=== PATIENT | female | born 1990 | race Caucasian/White ===

== ENCOUNTER → 2018-10-04 | Outpatient (CLI) | payer OTHER ==
[2018-10-04 18:22] LABS: CALCIUM 8.5 mg/dL (8.4-10.2)
[2018-10-04 18:58] LABS: FERRITIN 5.82 ng/mL (6.2-137.0)
== END ==
LOC: OD 16:48
PROVIDERS: ATTEND Advanced Practice Midwife
DX: O99.013 Anemia complicating pregnancy, third trimester (principal); D64.9 Anemia, unspecified; Z11.3 Encounter for screening for infections with a predominantly sexual mode of transmission; Z98.84 Bariatric surgery status
CPT/HCPCS: 36415; 82306; 82310; 82607; 82728; 82746; 83020; 83540; 83550; 87081; 87491; 87591

== ENCOUNTER 2018-10-30 14:41 | Outpatient (CLI) | payer OTHER ==
--- NOTE | 2018-10-30 15:54 | Non Stress Test Report ---
Non Stress Test Datetime Report Generated by CPN: 10/30/2018 15:54 DEMOGRAPHIC EGA NST: 40.0 INDICATION Indication for Study: Ordered by Provider MONITORING Monitor Explained: Monitor Explained; Test Explained; Patient Verbalized Understanding Time on Monitor: 10/30/2018 14:56 Time off Monitor: 10/30/2018 15:47 NST Duration: 51 NST INTERVENTIONS NST Interventions: None Physician Notified NST: Dr. Pedraza BABY A: [id number] BABY A Movement : Present Contraction Frequency : irregular FHR Baseline : 125 Accelerations : 15X15 Decelerations : None Variability : Moderate 6-25bpm NST Review: Questionable if Meets Criteria for Reactive NST NST Review and Verified By : Azeem Borges RN NST Results: Reactive NST REPORT Report Trigger: Send Report
== END 2018-10-30 15:53 | disposition home or self-care (01) ==
LOC: LC 14:41
PROVIDERS: ATTEND Student in an Organized Health Care Education/Training Program
PROC: 4A1HXCZ Monitoring of Products of Conception, Cardiac Rate, External Approach (ICD-10-PCS; principal; 2018-10-30)
DX: Z34.93 Encounter for supervision of normal pregnancy, unspecified, third trimester (principal)
CPT/HCPCS: 59025; 84112

== ENCOUNTER 2018-10-31 01:48 | Inpatient (IN) | payer OTHER ==
[2018-10-31] MEDS ORDERED: RINGERS SOLUTION,LACTATED 1,000 ML IV PRN (01:54)
[2018-10-31] MEDS ORDERED: OXYTOCIN 10 UNIT/ML VIAL ONE (02:00)
[2018-10-31] MEDS ORDERED: MISOPROSTOL 0.2 MG TABLET ONE (02:00)
[2018-10-31] MEDS ORDERED: LIDOCAINE 1% INJ-PF (10 MG/ML) 30 ML SDV ONE (02:01)
[2018-10-31] MEDS ORDERED: OXYTOCIN/NORMAL SALINE 20 UNIT/1,000 ML RTUINJ ONE (02:01)
[2018-10-31 02:34] LABS: ABSOLUTE BASOPHILS # (AUTO) 0.1 10^3/uL (0.0-0.2); ABSOLUTE EOSINOPHILS # (AUTO) 0.1 10^3/uL (0.0-0.6); ABSOLUTE LYMPHOCYTES (AUTO) 3.2 10^3/uL (0.5-4.7); ABSOLUTE MONOCYTES (AUTO) 0.8 10^3/uL (0.1-1.4); ABSOLUTE NEUT (AUTO) 5.3 10^3/uL (1.7-8.2); BASOPHILS % (AUTO) 0.7 % (0-2); HEMATOCRIT 30.4 % (36.0-47.0); HEMOGLOBIN 9.9 g/dL (12.0-15.5); LYMPHOCYTES % (AUTO) 34.3 % (13-45); MEAN CORPUSCULAR HEMOGLOBIN 25.4 pg (27.0-33.4); MEAN CORPUSCULAR HGB CONC 32.4 g/dL (32.0-36.0); MEAN CORPUSCULAR VOLUME 78 fl (80-97); PLATELET COUNT 281 10^3/uL (150-450); RED BLOOD COUNT 3.89 10^6/uL (3.72-5.28); RED CELL DISTRIBUTION WIDTH 13.2 % (11.5-14.0); TOTAL CELLS COUNTED % (AUTO) 100 %; WHITE BLOOD COUNT 9.5 10^3/uL (4.0-10.5)
[2018-10-31] MEDS ORDERED: EPHEDRINE SULFATE INJ 50 MG/1 ML AMPULE ONE (03:02)
[2018-10-31] MEDS ORDERED: BUPIVACAINE HCL 0.25 % INJ/PF (2.5 MG/1 ML) 30 ML VIAL ONE ×2 (03:03→03:04)
[2018-10-31] MEDS ORDERED: FENTANYL/BUPIVACAINE/NS/PF 300 MCG/150 ML RTUINJ EPI ONE (03:03)
--- NOTE | 2018-10-31 06:16 | Admission Physical ---
Datetime Report Generated by CPN: 10/31/2018 06:16 CURRENT ADMISSION Chief Complaint: Uterine Contractions; Suspected Ruptured Membranes Indication for Induction: Not Applicable Admit Impression : Term, Intrauterine ; Active Labor; Ruptured Membranes Admit Plan: Admit to Unit; Initiate Labor Protocol ALLERGIES Medication Allergies: No Medication Allergies: No Known Allergies (10/30/2018) Latex: No Latex Allergies Food Allergies: n/a Environmental Allergies: n/a OBSTETRICAL HISTORY EDC: 10/30/2018 00:00 : 1 Para: 0 Term: 0 : 0 SAB: 0 IAB: 0 Ectopic: 0 Livin Cesareans: 0 VBACs: 0 Multiple Births: 0 Gestational Diabetes: No Rh Sensitization: No Incompetent Cervix: No KAMAR: No Infertility: No ART Treatment: No Uterine Anomaly: No IUGR: No Hx Previous C/S: No Macrosomia: No Hx Loss/Stillborn: No PIH: No Hx : No Placenta Previa/Abruption: No Depression/PP Depression: No PTL/PROM: No Post Hemorrhage: No Current Procedures: Ultrasound Obstetrical History Comments: G1- current SEE RECORDS Alcohol: No Marijuana : No Cocaine: No Other Illicit Drugs: No Cigarettes: Never Smoker. 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 Surgery: No Heart Disease: No Hosp/Surgery: Yes Autoimmune Disorder: No Anesthetic Complications: No Kidney Disease: No Abnormal Pap Smear: No Neuro/Epilepsy: No Psychiatric Disorders: No Other Medical Diseases: Yes Hepatitis/Liver Disease: No Significant Family History: No Varicosities/Phlebitis: No Trauma/Violence : No Thyroid Dysfunction: No Medical History Comments: gastric bypass, tonsilectomy, wisdom teeth, anemia, colonoscopy INFECTIOUS HISTORY Gonorrhea: No Genital Herpes: No Chlamydia: No Tuberculosis: No Syphilis: No Hepatitis: No HIV/AIDS Exposure: No Rash or Viral Illness: No HPV: No PHYSICAL EXAM General: Normal HEENT: Normal Neurologic: Normal Thyroid: Deferred Heart: Normal Lungs: Normal Breast: Deferred Back: Normal Abdomen: Normal Genitourinary Exam: Normal Extremities: Normal DTRs: Normal Pelvic Type: Adequate Vital Signs: Reviewed VAGINAL EXAM Dilatation: 4 Effacement: 100 Station: -2 Contraction Comments: q4 MEMBRANES Membranes: Ruptured Amniotic Fluid Color: Clear FETUS A EGA: 40.1 Monitoring: External US FHR- Baseline: 125 Variability: Marked >25bpm Accelerations: 15X15 Decelerations: None FHR Category: Category I Presentation: Vertex Admit Comment: 28yo at 40+1ega presents for SROM at 0100 clear fluid. H/o Gastric bypass. Rh neg. GBS negative. O/w uncomplicated . Admit and epidural upon patient request. Anticpate . CAT I FHR tracing. PLANS FOR LABOR AND DELIVERY Labor and Delivery: None Pain Management: Epidural Feeding Preference: Breast Benefit of Breast Feed Discussed: Yes Circumcision: N/A INFORMED CONSENT Informed Consent Obtained: Vaginal Delivery; Risks, Benefits and Alternatives Discussed Signature: with User ID: [email or web address]
[2018-10-31] MEDS ORDERED: PROMETHAZINE HCL 25 MG TABLET PO PRN (06:23)
[2018-10-31] MEDS ORDERED: DIPHENHYDRAMINE HCL 25 MG CAPSULE PO PRN (06:23)
[2018-10-31] MEDS ORDERED: NA PHOS,M-B/NA PHOS,DI-BA (ADULT) 133 ML ENEMA PR PRN (06:23)
[2018-10-31] MEDS ORDERED: ZOLPIDEM TARTRATE 5 MG TABLET PO PRN (06:23)
[2018-10-31] MEDS ORDERED: ACETAMINOPHEN 325 MG TABLET PO PRN (06:23)
[2018-10-31] MEDS ORDERED: DIPH/PERTUSS(ACELL)/TETANUS VAC/PF 0.5 ML SYR (>=10YO) IM PRN (06:23)
[2018-10-31] MEDS ORDERED: OXYTOCIN/NORMAL SALINE 20 UNIT/1,000 ML RTUINJ IV PRN (06:23)
[2018-10-31] MEDS ORDERED: DIBUCAINE 1% OINTMENT 56 GM TP PRN (06:23)
[2018-10-31] MEDS ORDERED: MEASLES,MUMPS&RUBELLA VACC/PF 0.5 ML VIAL SUBCUT PRN (06:23)
[2018-10-31] MEDS ORDERED: PROMETHAZINE HCL INJ 25 MG/1 ML VIAL IV PRN (06:23)
[2018-10-31] MEDS ORDERED: GLYCERIN/WITCH HAZEL LEAF 1 EACH MED..WIPE TP PRN (06:23)
[2018-10-31] MEDS ORDERED: ACETAMINOPHEN WITH CODEINE #3 TABLET PO PRN (06:23)
[2018-10-31] MEDS ORDERED: MISOPROSTOL 0.2 MG TABLET PR ONE (06:23)
[2018-10-31] MEDS ORDERED: PSEUDOEPHEDRINE HCL 30 MG TABLET PO PRN (06:23)
[2018-10-31] MEDS ORDERED: MAGNESIUM HYDROXIDE SUSP 30 ML UDCUP PO PRN (06:23)
[2018-10-31] MEDS ORDERED: PROMETHAZINE HCL 25 MG SUPP.RECT PR PRN (06:23)
--- NOTE | 2018-10-31 06:34 | Warning Signs in Babies ---
VOD Warning Signs Datetime Report Generated by Cayla: 10/31/2018 06:34 VOD#608 -Warning Signs in Babies: Needs to be viewed. (10/30/2018 14:46:Antonia Brown RN)
[2018-10-31 06:44] LABS: COLOR,URINE YELLOW
[2018-10-31 06:45] LABS: APPEARANCE,URINE CLEAR; BILIRUBIN,URINE NEGATIVE (NEGATIVE); GLUCOSE, URINE NEGATIVE (NEGATIVE); KETONES,URINE NEGATIVE (NEGATIVE); LEUKOCYTE ESTERASE,URINE NEGATIVE (NEGATIVE); NITRITE,URINE NEGATIVE (NEGATIVE); PROTEIN,URINE NEGATIVE (NEGATIVE); URINE SPECIFIC GRAVITY 1.016
[2018-10-31 07:00] LABS: URINE AMPHETAMINES SCREEN NEGATIVE; URINE BARBITURATES SCREEN NEGATIVE; URINE BENZODIAZEPINES SCREEN NEGATIVE; URINE COCAINE SCREEN NEGATIVE; URINE MARIJUANA (THC) SCREEN NEGATIVE; URINE METHADONE SCREEN NEGATIVE; URINE PHENCYCLIDINE SCREEN NEGATIVE
[2018-10-31] MEDS: DOCUSATE SODIUM 100 MG CAPSULE PO SCH ×2 (10:21→17:43)
[2018-10-31] MEDS: PRENATAL VITAMIN W DHA CAPSULE PO SCH (10:21)
[2018-10-31] MEDS: FAMOTIDINE 20 MG TABLET PO SCH ×2 (10:22→21:21)
[2018-10-31] MEDS: SENNOSIDES/DOCUSATE 8.6-50 MG 1 EACH TABLET PO SCH (10:22)
[2018-10-31] MEDS: FERROUS SULFATE 325 MG TABLET PO SCH ×2 (10:22→17:43)
[2018-10-31] MEDS: IBUPROFEN 800 MG TABLET PO SCH ×2 (13:15→21:18)
[2018-10-31] MEDS: BENZOCAINE/MENTHOL AEROSOL SPRAY 56 ML TOP PRN (13:18)
[2018-11-01] MEDS: ACETAMINOPHEN WITH CODEINE #3 TABLET PO PRN ×2 (01:46→21:35)
[2018-11-01] MEDS: IBUPROFEN 800 MG TABLET PO SCH ×3 (06:05→21:20)
[2018-11-01 06:19] LABS: HEMATOCRIT 24.2 % (36.0-47.0); MEAN CORPUSCULAR HEMOGLOBIN 25.8 pg (27.0-33.4); MEAN CORPUSCULAR HGB CONC 33.1 g/dL (32.0-36.0); MEAN CORPUSCULAR VOLUME 78 fl (80-97); PLATELET COUNT 197 10^3/uL (150-450); RED BLOOD COUNT 3.09 10^6/uL (3.72-5.28); RED CELL DISTRIBUTION WIDTH 13.3 % (11.5-14.0); WHITE BLOOD COUNT 7.3 10^3/uL (4.0-10.5)
[2018-11-01 08:38] VITALS: BP 96/52
[2018-11-01] MEDS: SENNOSIDES/DOCUSATE 8.6-50 MG 1 EACH TABLET PO SCH (09:59)
[2018-11-01] MEDS: DOCUSATE SODIUM 100 MG CAPSULE PO SCH ×2 (09:59→17:33)
[2018-11-01] MEDS: FERROUS SULFATE 325 MG TABLET PO SCH ×2 (09:59→17:34)
[2018-11-01] MEDS: PRENATAL VITAMIN W DHA CAPSULE PO SCH (09:59)
[2018-11-01] MEDS: FAMOTIDINE 20 MG TABLET PO SCH ×2 (09:59→21:35)
--- NOTE | 2018-11-01 10:08 | PDOC PROGRESS REPORT ---
Subjective-OB Progress Note for:: 11/01/18 Subjective: reports bleeding slowing, pain controlled with current meds, denies needs Physical Exam (OB) Vital Signs: Temp Pulse Resp BP Pulse Ox 98.0 F 69 16 96/52 L 100 11/01/18 08:37 11/01/18 08:37 11/01/18 08:37 11/01/18 08:37 11/01/18 08:37 Intake & Output 10/31/18 11/01/18 11/02/18 06:59 06:59 06:59 Intake Total 240 Balance 240 Weight 82.554 kg - Abdomen Description: Soft Hernia Present: No Fundal Description: Firm, Midline Fundal Height: u/3 - u/4 - Abdominal Distension: No distension Tenderness: Nontender - Extremities Lower extremities: Cisco's sign - neg Calf: Normal, Nontender Objective-Diagnostic Laboratory: 11/01/18 06:09 11/01/18 06:09 WBC 7.3 RBC 3.09 L Hgb 8.0 L Hct 24.2 L MCV 78 L MCH 25.8 L MCHC 33.1 RDW 13.3 Plt Count 197 Assessment and Plan(PN) - Assessment and Plan (1) Active labor at term Is this a current diagnosis for this admission?: Yes (2) SROM (spontaneous rupture of membranes) Is this a current diagnosis for this admission?: Yes (3) Vaginal delivery Is this a current diagnosis for this admission?: Yes - Time Spent with Patient Time with patient: Less than 15 minutes Medications reviewed and adjusted accordingly: Yes - Disposition Anticipated Discharge: Home Within: within 24 hours
[2018-11-01] MEDS: BENZOCAINE/MENTHOL AEROSOL SPRAY 56 ML TOP PRN (17:35)
[2018-11-02] MEDS: IBUPROFEN 800 MG TABLET PO SCH (05:32)
--- NOTE | 2018-11-02 09:19 | PDOC DISCHARGE SUMMARY ---
Final Diagnosis Discharge Date: 11/02/18 - Day #2, doing well, , A negative, Baby is also Rh negative, doing well today, no complaints - Final Diagnosis (1) Anemia affecting Is this a current diagnosis for this admission?: Yes (2) Active labor at term Is this a current diagnosis for this admission?: Yes (3) H/O gastric bypass Is this a current diagnosis for this admission?: Yes (4) Maternal anemia, iron deficiency, antepartum Is this a current diagnosis for this admission?: Yes (5) SROM (spontaneous rupture of membranes) Is this a current diagnosis for this admission?: Yes (6) Vaginal delivery Is this a current diagnosis for this admission?: Yes Discharge Data - Discharge Medication Home Medications: Ascorbic Acid [Vitamin C] 1 tab PO DAILY PRN 10/30/18 Iron 18 mg PO DAILY 10/30/18 Vit,Calc76/Iron/Folic [Prenatabs Rx Tablet] 1 each PO DAILY 10/30/18 Reason(s) for Admission: Onset of Labor Procedures: Ultrasound Intrapartum Procedure(s): Spontaneous Vaginal Delivery Complication(s): Laceration-Labial Laceration-Degree: 1st - Diagnosis Test Laboratory: Temp Pulse Resp BP Pulse Ox 98.0 F 69 16 96/52 L 100 11/01/18 08:37 11/01/18 08:37 11/01/18 08:37 11/01/18 08:37 11/01/18 08:37 10/31/18 10/31/18 11/01/18 02:22 06:30 06:09 RBC 3.89 3.09 L Hgb 9.9 L 8.0 L Hct 30.4 L 24.2 L Urine Opiates Screen NEGATIVE - Discharge information/Instructions Discharge Activity: Activity As Tolerated, No Lifting Over 10 Pounds, Pelvic Rest Discharge Diet: As Tolerated, Regular Disposition: HOME, SELF-CARE Follow up with: [facility] in: 4, Weeks
[2018-11-02] MEDS: SENNOSIDES/DOCUSATE 8.6-50 MG 1 EACH TABLET PO SCH (10:09)
[2018-11-02] MEDS: PRENATAL VITAMIN W DHA CAPSULE PO SCH (10:09)
[2018-11-02] MEDS: FAMOTIDINE 20 MG TABLET PO SCH (10:09)
[2018-11-02] MEDS: DOCUSATE SODIUM 100 MG CAPSULE PO SCH (10:10)
[2018-11-02] MEDS: FERROUS SULFATE 325 MG TABLET PO SCH (10:10)
[2018-11-02] MEDS: ACETAMINOPHEN WITH CODEINE #3 TABLET PO PRN (11:40)
--- NOTE | 2018-11-15 10:54 | Delivery Summary ---
Del Sum A-C Datetime Report Generated by CPN: 11/15/2018 10:54 DELIVERY PERSONNEL DELIVERY PERSONNEL: [id number] Delivery Doctor:: Loretta Pedraza MD Labor and Delivery Nurse:: Elena Orozco RN Labor and Delivery Nurse:: Antonia Brown RN Power Station Operator/GAS ENGINE OPERATOR COMPRESSORS: Sanjana Bailey, ST MATERNAL INFORMATION Delivery Anesthesia: Epidural Medications After Delivery: Pitocin Bolus-Please Comment; Pitocin Drip 20 Units/1000ml NSS; Cytotec 1000mcg Per Rectum/Vagina Meds After Delivery Comment: Pitocin 20 units in NS 1000 mL bag bolus Estimated Blood Loss (ml): 50 Delivery QBL: 50 Delivery QBL Comment: 50 Maternal Complications: None Provider Comments: VFI delivered in ANKITA presentation. No nuchal cord. SHoulders and body delivered without difficulty. Cord doubly clamped and cut and infant to maternal abdomen for NRP. Placenta delivered intact spontaneously. FF at U with intermittent atony in lower uterine segment Cytotec 1000mcg given [place]. Good hemostasis after repair of bilateral labial abrasions. Dr. Paredes provided epidural. Mother and baby stable upon provider leaving the room LABOR SUMMARY EDC: 10/30/2018 00:00 No. Babies in Womb: 1 Attempted: No Labor Anesthesia: Epidural LABOR INFORMATION Reason for Induction: Not Applicable Onset of Labor: 10/31/2018 01:00 Complete Dilatation: 10/31/2018 05:35 Oxytocin: N/A Group B Beta Strep: negative Steroids Given: None Reason Steroids Not Administered: Not Applicable MEMBRANES Membranes Rupture Method: Spontaneous Rupture of Membranes: 10/31/2018 01:00 Length of Rupture (hr): 4.92 Amniotic Fluid Color: Clear Amniotic Fluid Amount: None Amniotic Fluid Odor: Normal STAGES OF LABOR Stage 1 hr: 4 Stage 1 min: 35 Stage 2 hr: 0 Stage 2 min: 20 Stage 3 hr: 0 Stage 3 min: 4 Total Time in Labor hr: 4 Total Time in Labor min: 59 VAGINAL DELIVERY Episiotomy: None Laceration #1: Vaginal Laceration Extension #1: N/A Other Laceration: bilateral labial abrasions, superficial Laceration Repair: Yes Laceration Repair Note: bilateral superficial labial abrasions repaired for hemostasis Sponge Count Correct: Yes Sharps Count Correct: Yes CSECTION DELIVERY Primary Indication: N/A Secondary Indication: N/A CSection Incidence: N/A Labor: N/A Elective: N/A CSection Incision: N/A BABY A INFORMATION Infant Delivery Date/Time: 10/31/2018 05:55 Method of Delivery: Vaginal Method of Delivery: Vaginal Born in Route : No : N/A Forceps: N/A Vacuum Extraction: N/A Shoulder Dystocia : No PRESENTATION/POSITION BABY A Presentation: Cephalic Cephalic Presentation: Vertex Vertex Position: Left Occipital Anterior Breech Presentation: N/A PLACENTA INFORMATION BABY A Placenta Delivery Time : 10/31/2018 05:59 Placenta Method of Delivery: Spontaneous Placenta Method of Delivery: Spontaneous Placenta Status: Delivered SCORES BABY A Heart Rate 1 min: >100 bpm Resp Effort 1 min: Good Cry Reflex Irritability 1 min: Cough or Sneeze or Pulls Away Muscle Tone 1 min: Active Motion Color 1 min: Blue/Pale Resuscitation Effort 1 min: Tactile Stimulation SCORE 1 MIN: 8 Heart Rate 5 min: >100 bpm Resp Effort 5 min: Good Cry Reflex Irritability 5 min: Cough or Sneeze or Pulls Away Muscle Tone 5 min: Active Motion Color 5 min: Body [place], Extremities Blue SCORE 5 MIN: 9 INFORMATION BABY A Gestational Age at Delivery: 40.1 Gestational Status: Full Term- 39- 40.6 Weeks Infant Outcome : Liveborn Infant Condition : Stable Infant Sex: Female Sex: Female IDENTIFICATION BABY A Infant Verification Date/Time: 10/31/2018 06:01 ID Band Number: [id number] Mother's Name Verified: Yes RN Verifying : Kristi Long, RN Additional Verifying Personnel: Bela Newton RN WEIGHT/LENGTH BABY A Infant Birthweight (gm): 3048 Weight (lb): 6 Infant Weight (oz): 12 Infant Length (in): 19.00 Length (cm): 48.26 CORD INFORMATION BABY A No. Cord Vessels: 3 Nuchal Cord : N/A Cord Blood Taken: Yes-For Eval (Mom's Blood Type - or O+) Suction: Mouth ASSESSMENT BABY A Complications: None Physical Findings at Delivery: Within Normal Limits Respirations: Appears Normal Skin to Skin: Yes Machine Hand/ALS Called : No Transferred To: Remains with Mother BABY B INFORMATION : N/A SIGNATURES Signature: with User ID: [email or web address]
--- NOTE | 2018-11-16 15:09 | Delivery Summary ---
Del Sum A-C Datetime Report Generated by CPN: 11/16/2018 15:09 DELIVERY PERSONNEL DELIVERY PERSONNEL: [id number] Delivery Doctor:: Loretta Pedraza MD Labor and Delivery Nurse:: Elena Orozco RN Labor and Delivery Nurse:: Antonia Brown RN Community Midwife/ROOM SERVICE CLERK: Sanjana Bailey, ST MATERNAL INFORMATION Delivery Anesthesia: Epidural Medications After Delivery: Pitocin Bolus-Please Comment; Pitocin Drip 20 Units/1000ml NSS; Cytotec 1000mcg Per Rectum/Vagina Meds After Delivery Comment: Pitocin 20 units in NS 1000 mL bag bolus Estimated Blood Loss (ml): 50 Delivery QBL: 50 Delivery QBL Comment: 50 Maternal Complications: None Provider Comments: VFI delivered in ANKITA presentation. No nuchal cord. SHoulders and body delivered without difficulty. Cord doubly clamped and cut and infant to maternal abdomen for NRP. Placenta delivered intact spontaneously. FF at U with intermittent atony in lower uterine segment Cytotec 1000mcg given [place]. Good hemostasis after repair of bilateral labial abrasions. Dr. Paredes provided epidural. Mother and baby stable upon provider leaving the room LABOR SUMMARY EDC: 10/30/2018 00:00 No. Babies in Womb: 1 Attempted: No Labor Anesthesia: Epidural LABOR INFORMATION Reason for Induction: Not Applicable Onset of Labor: 10/31/2018 01:00 Complete Dilatation: 10/31/2018 05:35 Oxytocin: N/A Group B Beta Strep: negative Steroids Given: None Reason Steroids Not Administered: Not Applicable MEMBRANES Membranes Rupture Method: Spontaneous Rupture of Membranes: 10/31/2018 01:00 Length of Rupture (hr): 4.92 Amniotic Fluid Color: Clear Amniotic Fluid Amount: None Amniotic Fluid Odor: Normal STAGES OF LABOR Stage 1 hr: 4 Stage 1 min: 35 Stage 2 hr: 0 Stage 2 min: 20 Stage 3 hr: 0 Stage 3 min: 4 Total Time in Labor hr: 4 Total Time in Labor min: 59 VAGINAL DELIVERY Episiotomy: None Laceration #1: Vaginal Laceration Extension #1: N/A Other Laceration: bilateral labial abrasions, superficial Laceration Repair: Yes Laceration Repair Note: bilateral superficial labial abrasions repaired for hemostasis Sponge Count Correct: Yes Sharps Count Correct: Yes CSECTION DELIVERY Primary Indication: N/A Secondary Indication: N/A CSection Incidence: N/A Labor: N/A Elective: N/A CSection Incision: N/A BABY A INFORMATION Infant Delivery Date/Time: 10/31/2018 05:55 Method of Delivery: Vaginal Method of Delivery: Vaginal Born in Route : No : N/A Forceps: N/A Vacuum Extraction: N/A Shoulder Dystocia : No PRESENTATION/POSITION BABY A Presentation: Cephalic Cephalic Presentation: Vertex Vertex Position: Left Occipital Anterior Breech Presentation: N/A PLACENTA INFORMATION BABY A Placenta Delivery Time : 10/31/2018 05:59 Placenta Method of Delivery: Spontaneous Placenta Method of Delivery: Spontaneous Placenta Status: Delivered SCORES BABY A Heart Rate 1 min: >100 bpm Resp Effort 1 min: Good Cry Reflex Irritability 1 min: Cough or Sneeze or Pulls Away Muscle Tone 1 min: Active Motion Color 1 min: Blue/Pale Resuscitation Effort 1 min: Tactile Stimulation SCORE 1 MIN: 8 Heart Rate 5 min: >100 bpm Resp Effort 5 min: Good Cry Reflex Irritability 5 min: Cough or Sneeze or Pulls Away Muscle Tone 5 min: Active Motion Color 5 min: Body [place], Extremities Blue SCORE 5 MIN: 9 INFORMATION BABY A Gestational Age at Delivery: 40.1 Gestational Status: Full Term- 39- 40.6 Weeks Infant Outcome : Liveborn Infant Condition : Stable Infant Sex: Female Sex: Female IDENTIFICATION BABY A Infant Verification Date/Time: 10/31/2018 06:01 ID Band Number: [id number] Mother's Name Verified: Yes RN Verifying : Kristi Long, RN Additional Verifying Personnel: Bela Newton RN WEIGHT/LENGTH BABY A Infant Birthweight (gm): 3048 Weight (lb): 6 Infant Weight (oz): 12 Infant Length (in): 19.00 Length (cm): 48.26 CORD INFORMATION BABY A No. Cord Vessels: 3 Nuchal Cord : N/A Cord Blood Taken: Yes-For Eval (Mom's Blood Type - or O+) Suction: Mouth ASSESSMENT BABY A Complications: None Physical Findings at Delivery: Within Normal Limits Respirations: Appears Normal Skin to Skin: Yes Machine Packer/ALS Called : No Transferred To: Remains with Mother BABY B INFORMATION : N/A SIGNATURES Signature: with User ID: [email or web address]
== END 2018-11-02 12:10 | disposition home or self-care (01) | DRG 807 ==
LOC: LC 01:48 → LR 02:03 → 2S 08:25
PROVIDERS: ADMIT Student in an Organized Health Care Education/Training Program; ATTEND Student in an Organized Health Care Education/Training Program
PROC: 10E0XZZ Delivery of Products of Conception, External Approach (ICD-10-PCS; principal; 2018-10-31)
PROC: 4A1HXCZ Monitoring of Products of Conception, Cardiac Rate, External Approach (ICD-10-PCS; 2018-10-31)
DX: O99.02 Anemia complicating childbirth (principal); Z37.0 Single live birth; D50.9 Iron deficiency anemia, unspecified; O70.0 First degree perineal laceration during delivery; Z3A.40 40 weeks gestation of pregnancy
CPT/HCPCS: 36415; 80307; 81005; 85025; 85027; 86592; 86850; 86900; 86901; 94760; J2590; J3010; J3490